=== PATIENT | female | born 1990 | race Caucasian/White ===

== ENCOUNTER 2017-10-02 20:59 | Emergency (ER) | payer OTHER, SELFPAY ==
[2017-10-03] MEDS ORDERED: ALBUTEROL 90 MCG/ACT 8GM HFA INHALER INH (00:45)
[2017-10-03] MEDS: KETOROLAC TROMETHAMINE 10 MG TAB PO (00:54)
[2017-10-03] MEDS: ALBUTEROL 90 MCG/ACT 8GM HFA INHALER INH (00:55)
== END 2017-10-03 01:11 | disposition home or self-care (01) ==
LOC: M ED 20:59
DX: J45.901 Unspecified asthma with (acute) exacerbation (principal); J06.9 Acute upper respiratory infection, unspecified; Z88.6 Allergy status to analgesic agent; Z91.040 Latex allergy status
CPT/HCPCS: 94640

== ENCOUNTER 2018-04-24 03:11 | Emergency (ER) | payer OTHER ==
[2018-04-24 03:50] LABS: BASO # 0.1 10^3/uL (0.0-0.2); BASO % 0.4 % (0.0-1.0); EOS % 0.2 % (0.0-3.0); HEMATOCRIT 42.3 % (36.0-47.0); HEMOGLOBIN 13.5 g/dl (12.0-15.5); IMMATURE GRANULOCYTE % 0.4 % (0-3.0); LYMPH # 2.9 10^3/uL (1.5-6.5); LYMPH % 20.5 % (24.0-44.0); MEAN CORPUSCULAR HEMOGLOBIN 27.1 pg (27.0-33.0); MEAN CORPUSCULAR HGB CONC 31.9 g/dl (32.0-36.5); MEAN CORPUSCULAR VOLUME 84.9 fl (80.0-96.0); MONO # 0.9 10^3/uL (0.0-0.8); MONO % 6.2 % (0.0-5.0); NEUTROPHILS # 10.2 10^3/uL (1.8-7.7); NEUTROPHILS % 72.3 % (36.0-66.0); PLATELET COUNT, AUTOMATED 335 10^3/uL (150-450); RED BLOOD COUNT 4.98 10^6/uL (4.00-5.40); RED CELL DISTRIBUTION WIDTH 13.6 % (11.5-14.5); WHITE BLOOD COUNT 14.1 10^3/uL (4.0-10.0)
[2018-04-24] MEDS: ONDANSETRON 4MG/2ML VIAL (J2405) IV (04:01)
[2018-04-24] MEDS: MORPHINE 4 MG/ML 1ML VIAL/SYRINGE (J2270) IV (04:01)
[2018-04-24 04:19] LABS: CONTROL LINE HCG INT CTR LINE PRESENT; HCG, SERUM QUALITATIVE NEGATIVE (NEGATIVE)
[2018-04-24 05:15] LABS: ANION GAP 12 MEQ/L (8-16); BLOOD UREA NITROGEN 7 MG/DL (7-18); CALCIUM LEVEL 8.6 MG/DL (8.5-10.1); CARBON DIOXIDE LEVEL 23 MEQ/L (21-32); CHLORIDE LEVEL 106 MEQ/L (98-107); CREATININE FOR GFR 0.86 MG/DL (0.55-1.30); GLOMERULAR FILTRATION RATE > 60.0 (>60); GLUCOSE, FASTING 127 MG/DL (70-100); POTASSIUM SERUM 3.6 MEQ/L (3.5-5.1); SODIUM LEVEL 141 MEQ/L (136-145)
[2018-04-24 06:22] LABS: KETONE, URINE AUTO RFX NEGATIVE (NEGATIVE); MUCUS, URINE RFX SMALL (NEGATIVE); NITRITE, URINE AUTO RFX NEGATIVE (NEGATIVE); RBC, URINE AUTO RFX TNTC /HPF (0-3); SPECIFIC GRAVITY UR AUTO RFX 1.026 (1.002-1.035); SQUAM EPITHELIAL CELL UR AURFX 5 /HPF (0-6); WBC, URINE AUTO RFX 4 /HPF (0-3)
[2018-04-24 06:30] LABS: LEUKOCYTE ESTERASE UR AUTO RFX TRACE (NEGATIVE)
[2018-04-24] MEDS ORDERED: traMADol 50 MG TAB (BULK 4 TAB ED) PO (07:15)
== END 2018-04-24 07:27 | disposition home or self-care (01) ==
LOC: M ED 03:11
DX: N93.8 Other specified abnormal uterine and vaginal bleeding (principal); N83.291 Other ovarian cyst, right side; N83.292 Other ovarian cyst, left side; N92.6 Irregular menstruation, unspecified; Z88.6 Allergy status to analgesic agent; Z91.040 Latex allergy status
CPT/HCPCS: J2270

== ENCOUNTER → 2018-05-15 | Outpatient (REF) | payer OTHER | LOC: M SFHCWAGY 10:18 | DX: Z12.4 Encounter for screening for malignant neoplasm of cervix (principal); R87.612 Low grade squamous intraepithelial lesion on cytologic smear of cervix (LGSIL) | CPT/HCPCS: 88142 ==

== ENCOUNTER → 2018-10-14 | Outpatient (CLI) | payer OTHER ==
[~2018-10-14] MED LIST: ALBU17IN2 INH; ALBU83IN INH; COMP1MIS3 XX
== END ==
LOC: M LAB 12:41
DX: N91.2 Amenorrhea, unspecified (principal)

== ENCOUNTER 2019-01-07 21:06 | Emergency (ER) | payer OTHER, SELFPAY ==
[~2019-01-07] VITALS: Ht 162.6 cm; Wt 168.2 kg
[2019-01-07 22:28] LABS: BASO # 0.1 10^3/uL (0.0-0.2); BASO % 0.4 % (0.0-1.0); EOS # 0.1 10^3/uL (0.0-0.50); EOS % 0.4 % (0.0-3.0); HEMATOCRIT 40.3 % (36.0-47.0); HEMOGLOBIN 12.9 g/dl (12.0-15.5); LYMPH % 18.1 % (24.0-44.0); MEAN CORPUSCULAR HEMOGLOBIN 28.4 pg (27.0-33.0); MEAN CORPUSCULAR VOLUME 88.6 fl (80.0-96.0); MONO # 1.2 10^3/uL (0.0-0.8); MONO % 7.2 % (0.0-5.0); NEUTROPHILS # 12.2 10^3/uL (1.8-7.7); NEUTROPHILS % 73.5 % (36.0-66.0); PLATELET COUNT, AUTOMATED 301 10^3/uL (150-450); RED BLOOD COUNT 4.55 10^6/uL (4.00-5.40); WHITE BLOOD COUNT 16.6 10^3/uL (4.0-10.0)
[2019-01-07 22:50] LABS: BLOOD UREA NITROGEN 13 MG/DL (7-18); CALCIUM LEVEL 9.1 MG/DL (8.5-10.1); CARBON DIOXIDE LEVEL 28 MEQ/L (21-32); CHLORIDE LEVEL 108 MEQ/L (98-107); CREATININE FOR GFR 0.76 MG/DL (0.55-1.30); GLOMERULAR FILTRATION RATE > 60.0 (>60); GLUCOSE, FASTING 89 MG/DL (70-100); SODIUM LEVEL 141 MEQ/L (136-145)
[2019-01-08] MEDS ORDERED: IBUPROFEN 800 MG TAB PO ONE (00:15)
--- NOTE | 2019-01-08 00:29 | REPVR ---
EXAM: CT Abdomen and Pelvis Without Contrast EXAM DATE/TIME: 01/07/2019 10:05 PM CLINICAL HISTORY: 28 years old, female; Abdominal pain; Flank; Left; Additional Info: L flank pain, R/O stone TECHNIQUE: Imaging protocol: Axial computed tomography images of the abdomen and pelvis without contrast. Coronal and sagittal reformatted images were created and reviewed. Radiation optimization: All CT scans at this facility use at least one of these dose optimization techniques: automated exposure control; mA and/or kV adjustment per patient size (includes targeted exams where dose is matched to clinical indication); or iterative reconstruction. COMPARISON: CT ABD PELVIS WITH CONTRAST 10/30/2015 4:09 PM FINDINGS: Liver: Normal. No mass. Gallbladder and bile ducts: Status post cholecystectomy. No biliary ductal dilatation. Pancreas: Normal. No ductal dilation. Spleen: Normal. No splenomegaly. Adrenals: Normal. No mass. Kidneys and ureters: No right hydronephrosis. Mild left hydronephrosis. No renal stones. Stomach and bowel: Normal. No obstruction. No mucosal thickening. Appendix: Appendix is normal. Intraperitoneal space: Normal. No free air. No significant fluid collection. Vasculature: Normal. No abdominal aortic aneurysm. Lymph nodes: Normal. No enlarged lymph nodes. Multiple small mesenteric nodes. Bladder: Unremarkable as visualized. Reproductive: Uterus is normal. Bones/joints: No acute fracture. No dislocation. Soft tissues: Unremarkable. IMPRESSION: 1. Mild left hydronephrosis without obstructing renal stone. Possible recently passed ureteral stone. 2. Additional findings as described Electronically signed by: Michoacano Busch On 01/08/2019 00:29:11 AM
[2019-01-08 00:39] VITALS: BP 137/97
[2019-01-08] MEDS ORDERED: CIPR-249 PO (00:40)
[2019-01-08] MEDS ORDERED: TRAM50TA2 PO (00:41)
== END 2019-01-08 00:56 | disposition home or self-care (01) ==
LOC: M ED 21:06
DX: N39.0 Urinary tract infection, site not specified (principal); N13.30 Unspecified hydronephrosis; E66.9 Obesity, unspecified; Z87.442 Personal history of urinary calculi; E28.2 Polycystic ovarian syndrome; J45.909 Unspecified asthma, uncomplicated; N80.9 Endometriosis, unspecified; Z88.6 Allergy status to analgesic agent; Z91.040 Latex allergy status

== ENCOUNTER → 2023-11-07 | Outpatient (REF) | payer OTHER ==
[~2023-11-07] MED LIST changes: -ALBU17IN2 INH; +ALBU2.5V10 INH; +ALBU6.7H6 INH; -ALBU83IN INH; +CIPR-249 PO; +TRAM50TA2 PO
[2023-11-07 18:21] LABS: HEMATOCRIT 42.5 % (36.0-47.0); HEMOGLOBIN 13.8 g/dl (12.0-15.5); MEAN CORPUSCULAR HEMOGLOBIN 29.1 pg (27.0-33.0); MEAN CORPUSCULAR HGB CONC 32.5 g/dl (32.0-36.5); MEAN CORPUSCULAR VOLUME 89.5 fl (80.0-96.0); PLATELET COUNT, AUTOMATED 307 10^3/uL (150-450); RED BLOOD COUNT 4.75 10^6/uL (4.00-5.40); WHITE BLOOD COUNT 7.6 10^3/uL (4.0-10.0)
[2023-11-07 18:51] LABS: THYROID STIMULATING HORMONE 2.661 uIU/ML (0.55-4.78)
[2023-11-07 18:52] LABS: FREE T4 1.07 NG/DL (0.89-1.76)
[2023-11-07 18:53] LABS: ALKALINE PHOSPHATASE 94 U/L (46-116); ALT/SGPT 48 U/L (7.0-40); AST/SGOT 16 U/L (<34); BILIRUBIN,TOTAL 0.3 MG/DL (0.3-1.2); BLOOD UREA NITROGEN 11 MG/DL (9-23); CALCIUM LEVEL 8.7 MG/DL (8.5-10.1); CARBON DIOXIDE LEVEL 28 MMOL/L (20-31); CHLORIDE LEVEL 109 MMOL/L (98-107); CHOLESTEROL LEVEL 152 MG/DL (<200); CHOLESTEROL RISK RATIO 4.72 (<5); CREATININE FOR GFR 0.61 MG/DL (0.55-1.30); GLOMERULAR FILTRATION RATE > 60.0 (>60); GLUCOSE, FASTING 80 MG/DL (60-100); HDL CHOLESTEROL 32.2 MG/DL (>40); NON-HDL-C 119.8 MG/DL; POTASSIUM SERUM 4.5 MMOL/L (3.5-5.1); SODIUM LEVEL 141 MMOL/L (136-145); TOTAL PROTEIN 6.4 G/DL (5.7-8.2); TRIGLYCERIDES LEVEL 119 MG/DL (<150)
[2023-11-08 12:21] LABS: HIV 1&2 SCREEN NEGATIVE (NEGATIVE)
[2023-11-08 12:29] LABS: HEPATITIS C VIRUS ABY INDEX 0.03 INDEX (<0.8)
== END ==
LOC: M LAB REF 16:40
PROVIDERS: ATTEND Physician Assistant
DX: R03.0 Elevated blood-pressure reading, without diagnosis of hypertension (principal); E66.01 Morbid (severe) obesity due to excess calories; Z68.45 Body mass index [BMI] 70 or greater, adult; Z11.59 Encounter for screening for other viral diseases; Z11.4 Encounter for screening for human immunodeficiency virus [HIV]

== ENCOUNTER → 2024-02-07 | Outpatient (CLI) | payer OTHER | LOC: M RAD 13:14 | PROVIDERS: ATTEND Obstetrics & Gynecology | DX: N83.201 Unspecified ovarian cyst, right side (principal) ==

== ENCOUNTER → 2024-06-11 | Outpatient (REF) | payer OTHER | LOC: M LAB REF 16:44 | PROVIDERS: ATTEND Physician Assistant | DX: Z12.4 Encounter for screening for malignant neoplasm of cervix (principal); Z11.3 Encounter for screening for infections with a predominantly sexual mode of transmission ==

== ENCOUNTER → 2024-08-13 | Outpatient (REF) | payer OTHER | LOC: M SFHCWAGY 17:41 | PROVIDERS: ATTEND Obstetrics & Gynecology | DX: N87.0 Mild cervical dysplasia (principal) ==

== ENCOUNTER 2024-12-21 05:57 | Day surgery (SDC) | payer OTHER ==
[~2024-12-21] VITALS: Ht 162.6 cm; Wt 179.4 kg
[~2024-12-21 05:57] MED LIST changes: +HYDR-3363 PO; +PHEN37.511 PO
[2024-12-21] MEDS: LR 1,000 ML IV SCH (06:20)
[2024-12-21 06:45] LABS: PLATELET COUNT, AUTOMATED 311 10^3/uL (150-450)
[2024-12-21] MEDS ORDERED: LIDOCAINE 2% 100 MG/5 ML SDV (FOR ANES.) As Ordered ONE (06:54)
[2024-12-21] MEDS ORDERED: dexmedeTOMIDine (4 MCG/ML) 200 MCG/50 ML BTL As Ordered ONE (06:54)
[2024-12-21] MEDS ORDERED: SUGAMMADEX SODIUM 200 MG/2 ML VIAL As Ordered ONE (06:54)
[2024-12-21] MEDS ORDERED: ONDANSETRON 4MG 2ML VIAL As Ordered ONE (06:54)
[2024-12-21] MEDS ORDERED: ROCURONIUM BROMIDE 50MG/5ML VIAL As Ordered ONE (06:54)
[2024-12-21] MEDS ORDERED: dexAMETHasone 4 MG/ML 1 ML VIAL As Ordered ONE (06:54)
[2024-12-21] MEDS ORDERED: MIDAZOLAM INJ 2 MG/2 ML VIAL As Ordered ONE (06:55)
[2024-12-21] MEDS: SCOPOLAMINE 1MG TRANSDERMAL PATCH TOP ONE (07:05)
[2024-12-21] MEDS: ceFAZolin SOD 3 GM in DEXTROSE 5% (D5W) MINI-BAG PLU 1... IV ONE (07:50)
[2024-12-21] MEDS ORDERED: HYDROmorphone HCL 2 MG/ML 1 ML VIAL As Ordered ONE (08:18)
[2024-12-21] MEDS ORDERED: KETOROLAC 30 MG/ML 1 ML VIAL As Ordered ONE (09:42)
[2024-12-21] MEDS: ONDANSETRON 4MG 2ML VIAL IV PRN (10:45)
[2024-12-21 12:15] VITALS: BP 144/92; TEMP 97.2; O2SAT 96
== END 2024-12-21 12:48 | disposition home or self-care (01) ==
LOC: M SDC 05:57
PROVIDERS: ATTEND Obstetrics & Gynecology
DX: N93.9 Abnormal uterine and vaginal bleeding, unspecified (principal); D25.9 Leiomyoma of uterus, unspecified; N83.8 Other noninflammatory disorders of ovary, fallopian tube and broad ligament; N88.8 Other specified noninflammatory disorders of cervix uteri; E28.2 Polycystic ovarian syndrome; J45.909 Unspecified asthma, uncomplicated; E66.01 Morbid (severe) obesity due to excess calories; Z79.899 Other long term (current) drug therapy; Z91.040 Latex allergy status; Z88.6 Allergy status to analgesic agent; Z90.49 Acquired absence of other specified parts of digestive tract; Z68.44 Body mass index [BMI] 60.0-69.9, adult
CPT/HCPCS: 36415; 58571; 85027; 86850; 86900; 86901; 88307; J0665; J0690; J1100; J1171; J1885; J2250; J2405; J3010; S2900